=== PATIENT | male | born 1960 | race Hispanic/Latino ===

== ENCOUNTER 2020-03-25 07:46 | Emergency (ER) | payer SELFPAY ==
[2020-03-25] MEDS ORDERED: CLINDAMYCIN 600 MG/D5% WATER 50 ML IV ONE (08:28)
[2020-03-25 08:43] LABS: BASOPHILS % (AUTO) 0.4 % (0.0-5.0); EOSINOPHILS % (AUTO) 0.9 % (0.0-8.0); LYMPHOCYTES % (AUTO) 18.3 % (21.0-51.0); MEAN CORPUSCULAR HEMOGLOBIN 31.1 pg (27.0-33.0); MEAN CORPUSCULAR HGB CONC 35.5 g/dL (32.0-36.0); MEAN CORPUSCULAR VOLUME 87.6 fL (79-99); MONOCYTES % (AUTO) 7.2 % (3.0-13.0); NEUTROPHILS % (AUTO) 72.9 % (40.0-77.0); PLATELET COUNT (AUTO) 307 K/uL (130-400); RED BLOOD CELL COUNT(AUTO) 4.34 MIL/uL (4.50-6.20); RED CELL DISTRIBUTION WIDTH 11.8 % (11.0-15.5); WHITE BLOOD COUNT (AUTO) 11.7 K/uL (4.8-10.8)
[2020-03-25 09:13] LABS: CREATININE 0.9 mg/dL (0.5-1.5); POTASSIUM 3.4 mmol/L (3.5-5.1)
[2020-03-25 09:18] LABS: ALBUMIN 3.2 g/dL (3.5-5.0); BILIRUBIN,TOTAL 0.7 mg/dL (0.2-1.0); TOTAL PROTEIN, SERUM 7.8 g/dL (6.0-8.3)
== END 2020-03-25 12:46 | disposition home or self-care (01) ==
LOC: EDH 07:46
DX: S61.451A Open bite of right hand, initial encounter (principal); S81.851A Open bite, right lower leg, initial encounter; S91.331A Puncture wound without foreign body, right foot, initial encounter; S61.431A Puncture wound without foreign body of right hand, initial encounter; L03.031 Cellulitis of right toe; E11.9 Type 2 diabetes mellitus without complications; Z88.6 Allergy status to analgesic agent; Z88.1 Allergy status to other antibiotic agents; W54.0XXA Bitten by dog, initial encounter; Y93.89 Activity, other specified; Y92.098 Other place in other non-institutional residence as the place of occurrence of the external cause; Y99.8 Other external cause status
CPT/HCPCS: 36415; 73130; 73630; 80053; 83605; 84145; 85025; 87040; 96365; 96366; 99285; J3490

== ENCOUNTER 2020-05-07 11:31 | Inpatient (IN) | payer SELFPAY ==
[~2020-05-07] VITALS: Ht 177.8 cm; Wt 78.9 kg
[2020-05-07] MEDS ORDERED: CLINDAMYCIN 600 MG/D5% WATER 50 ML IV ONE (12:34)
[2020-05-07 12:41] LABS: BASOPHILS % (AUTO) 0.4 % (0.0-5.0); EOSINOPHILS % (AUTO) 2.1 % (0.0-8.0); HEMATOCRIT 38.5 % (42-54); LYMPHOCYTES % (AUTO) 31.9 % (21.0-51.0); MEAN CORPUSCULAR HEMOGLOBIN 31.1 pg (27.0-33.0); MEAN CORPUSCULAR HGB CONC 35.3 g/dL (32.0-36.0); MEAN CORPUSCULAR VOLUME 87.9 fL (79-99); MONOCYTES % (AUTO) 6.9 % (3.0-13.0); NEUTROPHILS % (AUTO) 58.3 % (40.0-77.0); PLATELET COUNT (AUTO) 293 K/uL (130-400); RED BLOOD CELL COUNT(AUTO) 4.38 MIL/uL (4.50-6.20); RED CELL DISTRIBUTION WIDTH 12.5 % (11.0-15.5); WHITE BLOOD COUNT (AUTO) 6.7 K/uL (4.8-10.8)
[2020-05-07 13:29] LABS: CREATININE 0.9 mg/dL (0.5-1.5); POTASSIUM 3.8 mmol/L (3.5-5.1)
[2020-05-07 13:36] LABS: ALBUMIN 3.3 g/dL (3.5-5.0); BILIRUBIN,TOTAL 0.4 mg/dL (0.2-1.0); TOTAL PROTEIN, SERUM 7.1 g/dL (6.0-8.3)
[2020-05-07] MEDS ORDERED: MORPHINE SULFATE 4 MG/1ML SYG IV PRN (16:30)
[2020-05-07] MEDS ORDERED: ACETAMINOPHEN-CODEINE 300/30MG TAB PO PRN (16:30)
[2020-05-07] MEDS ORDERED: ONDANSETRON HCL 4 MG/2 ML VIAL IV PRN (16:30)
[2020-05-07] MEDS ORDERED: ACETAMINOPHEN 325 MG TAB PO PRN ×2 (16:30)
[2020-05-07] MEDS: DOXYCYCLINE 100MG+NS 250ML 250 ML IV SCH (16:30)
[2020-05-07] MEDS ORDERED: MORPHINE SULFATE 2 MG/ML 1ML SYG IV PRN (16:30)
[2020-05-07 19:37] VITALS: BP 168/87
[2020-05-07] MEDS: SODIUM CHLORIDE 0.9% 1000ML 1,000 ML IV SCH (20:41)
[2020-05-07] MEDS: FAMOTIDINE/PF 20 MG/2 ML VIAL IV SCH (20:41)
[2020-05-07] MEDS: DOXYCYCLINE HYCLATE 100 MG TABLET PO SCH (20:45)
[2020-05-07 21:41] LABS: HEMOGLOBIN A1C 7.9 % (4.0-6.0)
[2020-05-08] VITALS (7 sets, daily range): BP systolic 132–155; BP diastolic 61–89
[2020-05-08] MEDS: SODIUM CHLORIDE 0.9% 1000ML 1,000 ML IV SCH ×3 (02:59→21:02)
[2020-05-08] MEDS: DOXYCYCLINE 100MG+NS 250ML 250 ML IV SCH ×2 (02:59→08:25)
[2020-05-08] MEDS ORDERED: HYDRALAZINE HCL 20 MG/ML VIAL IV PRN (08:15)
--- NOTE | 2020-05-08 08:28 | NUR ---
i spoke to dr albert and informed of consult and fact that pt is npo for him; he stated he was not going to do anything today for pt and ok to feed and that pt did not need an ortho consult for the non displaced toe fx; i also informed winch truck operator AJ from hospitalist group of dr albert statement and he said ok to d/c consult and feed pt.
[2020-05-08] MEDS: CLINDAMYCIN 600 MG/D5% WATER 50 ML IV SCH ×3 (10:36→21:00)
[2020-05-08] MEDS: DOXYCYCLINE HYCLATE 100 MG TABLET PO SCH ×2 (10:37→21:09)
[2020-05-08] MEDS: FAMOTIDINE/PF 20 MG/2 ML VIAL IV SCH ×2 (10:37→21:00)
[2020-05-08] MEDS: ENOXAPARIN SODIUM 30 MG/0.3 ML SQ SCH (10:37)
[2020-05-08] MEDS: INSULIN HUMULIN R 100 UNIT/ML 3ML SQ SCH ×3 (11:30→21:08)
--- NOTE | 2020-05-08 13:02 | NUR ---
dr mason podiatry here to see patient; when he was examining right foot 2nd toe he squezzed the toe a bit and some serous drainage came out; i got a swab and a culture sample was collected; dr mason then dressed foot in 4x4 gauze with kerlix wrap and instructed to change dressing wet to dry 2x a day; he stated pt could have osteomylitis in the foot and may need to have the toe amputated later down the line but to try antibiotics at this time and monitor. i have ordered gram stain c&s and sent swab sample to lab; pt kike. proc. well.
--- NOTE | 2020-05-08 16:48 | NUR ---
cm note met with patient and states resides at home with spouse, independent with adls and ambulation. no dme. no services. dc plan [place] back [place]. no dc needs. community rx and clinic assist programs provided. Addendum: 05/08/20 at 1652 by DAE GONZALEZ CM Amended: Links added.
--- NOTE | 2020-05-08 21:27 | NUR ---
NOTE PATIENT'S DRESSNG ON RIGHT FOOT BECAME UNDONE. OBTAINED NEW SUPPLIES TO REDRESS FOOT. MINIMAL DRAINAGE NOTED ON OLD GAUZE. REDNESS ON RING TOE. AFTER CLEANING WITH STERILE NS, WRAPPED TO IN NS MOISTENED GAUZE. COVERED WITH MAGNOLIA 4X4 AND WRAPPED FOOT WITH KERLIX GAUZE. SECURED WITH PAPER TAPE. PATIENT TOLERATED WITH NO DISCOMFORT.
[2020-05-09] MEDS: DOXYCYCLINE 100MG+NS 250ML 250 ML IV SCH (02:16)
[2020-05-09] MEDS: CLINDAMYCIN 600 MG/D5% WATER 50 ML IV SCH ×2 (02:16→09:47)
[2020-05-09 04:00] VITALS: BP 133/76
[2020-05-09 04:32] LABS: BASOPHILS % (AUTO) 0.6 % (0.0-5.0); HEMATOCRIT 36.8 % (42-54); LYMPHOCYTES % (AUTO) 30.6 % (21.0-51.0); MEAN CORPUSCULAR HEMOGLOBIN 30.5 pg (27.0-33.0); MEAN CORPUSCULAR HGB CONC 34.5 g/dL (32.0-36.0); MEAN CORPUSCULAR VOLUME 88.2 fL (79-99); MONOCYTES % (AUTO) 7.1 % (3.0-13.0); NEUTROPHILS % (AUTO) 59.4 % (40.0-77.0); PLATELET COUNT (AUTO) 262 K/uL (130-400); RED BLOOD CELL COUNT(AUTO) 4.17 MIL/uL (4.50-6.20); RED CELL DISTRIBUTION WIDTH 12.7 % (11.0-15.5); WHITE BLOOD COUNT (AUTO) 7.9 K/uL (4.8-10.8)
[2020-05-09 04:43] LABS: CREATININE 0.8 mg/dL (0.5-1.5); POTASSIUM 3.7 mmol/L (3.5-5.1)
[2020-05-09] MEDS: INSULIN HUMULIN R 100 UNIT/ML 3ML SQ SCH ×4 (06:38→21:00)
[2020-05-09 08:18] VITALS: BP 145/78
[2020-05-09] MEDS ORDERED: GADODIAMIDE 10 MMOL/20 ML VIAL IV ONE (09:16)
[2020-05-09] MEDS: DOXYCYCLINE HYCLATE 100 MG TABLET PO SCH (09:42)
[2020-05-09] MEDS: ENOXAPARIN SODIUM 30 MG/0.3 ML SQ SCH (09:42)
[2020-05-09] MEDS: FAMOTIDINE/PF 20 MG/2 ML VIAL IV SCH ×2 (09:42→21:10)
[2020-05-09] MEDS: SODIUM CHLORIDE 0.9% 1000ML 1,000 ML IV SCH ×3 (09:48→21:11)
[2020-05-09 11:27] VITALS: BP 147/77
[2020-05-09] MEDS ORDERED: VANCOMYCIN PROTOCOL PER PHARMACY IV SCH (11:45)
[2020-05-09] MEDS: DIPH,PERTUSS(ACELL),TET VAC/PF 0.5 ML VIAL IM SCH (11:45)
[2020-05-09] MEDS ORDERED: VANCOMYCIN 1.5 GM in SODIUM CHLORIDE 0.9% 250 ML IV SCH (12:15)
[2020-05-09 16:25] VITALS: BP 154/74
--- NOTE | 2020-05-09 16:38 | NUR ---
RD NOTIFICATION Pt admitted with possible osteomyelitis, as per EMR. PMH of DM. Pt tolerating 75gm CCD with no report of GI distress. PO intake at 100%. Reported insignificant weight loss. BMI WNL. RD to follow up with Nutrition education Recommend to continue current diet order. RD to continue to monitor. Please notify as additional nutrition concerns arise. Thank you.
--- NOTE | 2020-05-09 19:32 | NUR ---
NOTE SPOKE TO DR MORALEZ ABOUT PATIENT CHANGING HIS MIND ABOUT TREATMENT FOR OSTEOMYELITIS RIGHT SECOND TOE. NOW HE IS REQUESTING TO HAVE TOE AMPUTATED. HE SAID HE DID NOT WANT TO LOOSE HIS KIDNEYS TO SIX WEEKS OF ANTIBIOTICS. ORDERS RECEIVED FOR SURGERY TOMORROW. DR MORALEZ HAD INITIALLY APPROACHED HIM WITH RECOMMENDATION FOR AMPUTATION BUT HE INQUIRED ABOUT TRYING TO SAVE HIS TOE BUT HAD A CHANGE OF OPINION.
[2020-05-09 20:00] VITALS: BP 133/75
[2020-05-09] MEDS: VANCOMYCIN 1GM+NS 250ML 250 ML IV SCH (21:10)
[2020-05-09 23:36] VITALS: BP 150/80
[2020-05-10] VITALS (24 sets, daily range): BP systolic 32–159; BP diastolic 44–75
[2020-05-10 05:20] LABS: BASOPHILS % (AUTO) 0.4 % (0.0-5.0); EOSINOPHILS % (AUTO) 3.1 % (0.0-8.0); LYMPHOCYTES % (AUTO) 29.1 % (21.0-51.0); MEAN CORPUSCULAR HEMOGLOBIN 30.7 pg (27.0-33.0); MEAN CORPUSCULAR HGB CONC 34.7 g/dL (32.0-36.0); MEAN CORPUSCULAR VOLUME 88.4 fL (79-99); MONOCYTES % (AUTO) 7.1 % (3.0-13.0); PLATELET COUNT (AUTO) 277 K/uL (130-400); RED CELL DISTRIBUTION WIDTH 12.8 % (11.0-15.5)
[2020-05-10 05:41] LABS: CREATININE 0.9 mg/dL (0.5-1.5); POTASSIUM 3.9 mmol/L (3.5-5.1)
[2020-05-10] MEDS: INSULIN HUMULIN R 100 UNIT/ML 3ML SQ SCH ×4 (06:32→21:00)
[2020-05-10] MEDS: ENOXAPARIN SODIUM 30 MG/0.3 ML SQ SCH (07:56)
[2020-05-10] MEDS: VANCOMYCIN 1GM+NS 250ML 250 ML IV SCH ×2 (08:09→21:35)
[2020-05-10] MEDS: FAMOTIDINE/PF 20 MG/2 ML VIAL IV SCH ×2 (08:09→21:35)
[2020-05-10] MEDS: DIPH,PERTUSS(ACELL),TET VAC/PF 0.5 ML VIAL IM SCH (11:45)
[2020-05-10] MEDS ORDERED: DEXAMETHASONE SOD PHOSPHATE 10MG/ML 1ML VIAL ONE (12:28)
[2020-05-10] MEDS ORDERED: FENTANYL CITRATE PF 50 MCG/1 ML 2ML VIAL ONE (12:28)
[2020-05-10] MEDS ORDERED: PROPOFOL 10 MG/ML 20ML VIAL IV ONE (12:28)
[2020-05-10] MEDS ORDERED: MIDAZOLAM HCL 1 MG/ML 2ML VIAL ONE (12:28)
[2020-05-10] MEDS ORDERED: LIDOCAINE PF 2% 5ML ABBOJECT ONE (12:28)
[2020-05-10] MEDS ORDERED: ONDANSETRON HCL 4 MG/2 ML VIAL ONE (12:28)
[2020-05-10] MEDS ORDERED: MORPHINE SULFATE 2 MG/ML 1ML SYG IV PRN (12:30)
[2020-05-10] MEDS ORDERED: HYDROCODONE/ACETAMINOPHEN 5/325 MG TAB PO PRN (12:30)
[2020-05-10] MEDS ORDERED: ROCURONIUM 10MG/1ML SYR 10 MG/ML ML ONE (12:31)
[2020-05-10] MEDS ORDERED: BUPIVACAINE/PF 0.5% 30ML VIAL ONE (12:39)
[2020-05-10] MEDS ORDERED: LIDOCAINE HCL 1% 20 ML VIAL ONE (12:39)
[2020-05-10] MEDS ORDERED: AMLODIPINE BESYLATE 5 MG TAB PO SCH (14:15)
--- NOTE | 2020-05-10 16:09 | NUR ---
NUTRITION EDUCATION Pt NPO at time of screen. Nutrition recommendations and education handouts placed in Pt chart. Pt with previous good appetite. RD to follow up.
--- NOTE | 2020-05-10 21:35 | NUR ---
MEDS SHIFT ASSESSMENT DONE, PLEASE REFER TO CHART. PT CLAIMS OF POST OP PAINS. DUE MEDS ADMINISTERED, TYLENOL #3 1 TAB GIVEN FOR PAINS. KEPT COMFORTABLE IN BED. CALL LIGHT WITHIN REACH. WILL MONITOR PT. Addendum: 05/11/20 at 0312 by DHAVAL AVENDAÑO RN RN Amended: Links added.
[2020-05-11] VITALS: BP 138/73
--- NOTE | 2020-05-11 00:11 | NUR ---
PAIN PT CLAIMS OF POST OP PAINS ON THE RIGHT FOOT. PCP IN AND CHECKED V/S, STABLE. MEDICATED WITH MORPHINE IV. KEPT COMFORTABLE IN BED. CALL LIGHT WITHIN REACH. WILL RE-ASSESS PT. Addendum: 05/11/20 at 0246 by DHAVAL AVENDAÑO RN RN Amended: Links added.
--- NOTE | 2020-05-11 02:00 | NUR ---
ROUNDS PT RESTING WELL, FAIRLY ASLEEP. NO DISTRESS NOTED. KEPT RESTED AND COMFORTABLE. CALL LIGHT WITHIN REACH. WILL MONITOR PT. CALL LIGHT WITHIN REACH.
[2020-05-11 03:44] LABS: BASOPHILS % (AUTO) 0.4 % (0.0-5.0); EOSINOPHILS % (AUTO) 2.7 % (0.0-8.0); LYMPHOCYTES % (AUTO) 34.4 % (21.0-51.0); MEAN CORPUSCULAR HEMOGLOBIN 30.4 pg (27.0-33.0); MEAN CORPUSCULAR HGB CONC 34.2 g/dL (32.0-36.0); MEAN CORPUSCULAR VOLUME 88.9 fL (79-99); MONOCYTES % (AUTO) 7.6 % (3.0-13.0); NEUTROPHILS % (AUTO) 54.6 % (40.0-77.0); PLATELET COUNT (AUTO) 250 K/uL (130-400); RED BLOOD CELL COUNT(AUTO) 4.05 MIL/uL (4.50-6.20); RED CELL DISTRIBUTION WIDTH 12.7 % (11.0-15.5); WHITE BLOOD COUNT (AUTO) 7.4 K/uL (4.8-10.8)
[2020-05-11 03:55] VITALS: BP 121/84
[2020-05-11 03:57] LABS: ALBUMIN 2.9 g/dL (3.5-5.0); BILIRUBIN,TOTAL 0.4 mg/dL (0.2-1.0); CREATININE 0.9 mg/dL (0.5-1.5); POTASSIUM 3.9 mmol/L (3.5-5.1); TOTAL PROTEIN, SERUM 6.2 g/dL (6.0-8.3)
[2020-05-11] MEDS: INSULIN HUMULIN R 100 UNIT/ML 3ML SQ SCH ×2 (05:57→11:30)
--- NOTE | 2020-05-11 06:00 | NUR ---
ROUNDS PT RESTING WELL. NO DISTRESS NOTED. NO CONCERNS VERBALIZED. FOR MORE CARE.
[2020-05-11 07:30] VITALS: BP 135/74
[2020-05-11] MEDS ORDERED: AMLODIPINE BESYLATE 5 MG TAB PO SCH (09:00)
[2020-05-11] MEDS: FAMOTIDINE/PF 20 MG/2 ML VIAL IV SCH (09:37)
[2020-05-11] MEDS: ENOXAPARIN SODIUM 30 MG/0.3 ML SQ SCH (09:38)
[2020-05-11] MEDS ORDERED: VANCOMYCIN 1.25 GM in SODIUM CHLORIDE 0.9% 250 ML IV SCH (09:45)
[2020-05-11] MEDS ORDERED: COMPOUND IV REFRIGERATED 1 EACH IVSOLN MISC PRN (09:45)
--- NOTE | 2020-05-11 10:01 | NUR ---
per NNEKA Torres she received a call from [facility] to instruct patient how to utilize bilateral crutches safely.Went to see patient and provided bilateral crutches and was able to ambulate safely [facility] to [facility].Notified NNEKA Torres that patient did well without any LOB. Addendum: 05/11/20 at 1004 by MESSI MOSCOSO, PT PT Amended: Links added.
[2020-05-11 11:00] VITALS: BP 136/70
[2020-05-11] MEDS: DIPH,PERTUSS(ACELL),TET VAC/PF 0.5 ML VIAL IM SCH (11:45)
[2020-05-11 16:00] VITALS: BP 139/73
--- NOTE | 2020-05-11 18:00 | NUR ---
DISCHARGE HOME. . REVIEW. AND DRSG CHANGES TO HIS RT FOOT . . OF DR. MORALEZ ORDERS TO FOLLOW WITH WOUND CARE, AND TO KEEP DRSG DRY AND INTACT. PT .WANTED RT FOOT DRSG DEMONTATION . PRIOR . TO GO HOME DRSG REMOVE. RT FOOT 2ND TOE STAPLE TO AMPUATIOON SITE. DRY AND CLEAN NOTED NO DRAINAGE. A SM PIECE OF VASOLINE GAUZE DONE . APPLY AND STERILE GAUZE PLACED AND SECURE WITH KERLIX AND WRAP WITH GABRIEL WRAP. TOLERATE WELL .STATED THAT HE DID HIS AMPUATION CARE AT HOME, AND IS ABLE TO DO IT AT HOME, UNDERSTAND EDUCATION OF WOUND CARE DRSG AND FOLLOWUP TO WOUND CENTER . . SL TO HIS [facility] ,[place] WITH NO HEMATOMA NOTED. SUPPLIES GIVEN FOR WOUND CARE DRSG AT HOME, AND TO CALL DR MORALEZ FOR ANY CONCERNS. DISCHARGE HOME, WITH FAMILY ..
== END 2020-05-11 18:00 | disposition home or self-care (01) | DRG 617 ==
LOC: EDH 11:31 → EDHIP 11:32 → 3DH 18:14
PROVIDERS: ADMIT Hospitalist; ATTEND Hospitalist
PROC: 3E0234Z Introduction of Serum, Toxoid and Vaccine into Muscle, Percutaneous Approach (ICD-10-PCS; 2020-05-09)
PROC: 0Y6R0Z0 Detachment at Right 2nd Toe, Complete, Open Approach (ICD-10-PCS; principal; 2020-05-10 12:33)
DX: E11.69 Type 2 diabetes mellitus with other specified complication (principal); L02.611 Cutaneous abscess of right foot; M86.8X7 Other osteomyelitis, ankle and foot; L03.031 Cellulitis of right toe; E11.621 Type 2 diabetes mellitus with foot ulcer; E66.9 Obesity, unspecified; Z53.20 Procedure and treatment not carried out because of patient's decision for unspecified reasons; E11.65 Type 2 diabetes mellitus with hyperglycemia; B95.61 Methicillin susceptible Staphylococcus aureus infection as the cause of diseases classified elsewhere; Z68.25 Body mass index [BMI] 25.0-25.9, adult; L97.519 Non-pressure chronic ulcer of other part of right foot with unspecified severity; W54.0XXA Bitten by dog, initial encounter; Y93.89 Activity, other specified; Y92.89 Other specified places as the place of occurrence of the external cause; Y99.8 Other external cause status; Z23 Encounter for immunization; Z88.6 Allergy status to analgesic agent
CPT/HCPCS: 36415; 73660; 73720; 80048; 80053; 80202; 82948; 83036; 85025; 87070; 87077; 87186; 88305; 88311; 90715; 93925; A9579; G0378; J1100; J1650; J1815; J2001; J2250; J2270; J2405; J2704; J3010; J3370; J3490; J7030; J7050

== ENCOUNTER → 2020-05-18 | Outpatient (CLI) | payer SELFPAY | END | disposition home or self-care (01) | LOC: WHH 08:42 | PROVIDERS: ATTEND Podiatrist Foot & Ankle Surgery | DX: T87.89 Other complications of amputation stump (principal); E11.51 Type 2 diabetes mellitus with diabetic peripheral angiopathy without gangrene; E11.69 Type 2 diabetes mellitus with other specified complication; M86.18 Other acute osteomyelitis, other site; M86.8X7 Other osteomyelitis, ankle and foot; E78.5 Hyperlipidemia, unspecified; E66.9 Obesity, unspecified; Z98.49 Cataract extraction status, unspecified eye; Z87.891 Personal history of nicotine dependence; Z68.24 Body mass index [BMI] 24.0-24.9, adult; Y83.5 Amputation of limb(s) as the cause of abnormal reaction of the patient, or of later complication, without mention of misadventure at the time of the procedure | CPT/HCPCS: 82948; 99215; A4450 ==

== ENCOUNTER 2020-06-01 09:00 | Outpatient (CLI) | payer SELFPAY | END 2020-06-01 11:51 | disposition home or self-care (01) | LOC: WHH 09:00 | PROVIDERS: ATTEND Podiatrist Foot & Ankle Surgery | DX: T87.89 Other complications of amputation stump (principal); E11.51 Type 2 diabetes mellitus with diabetic peripheral angiopathy without gangrene; E11.69 Type 2 diabetes mellitus with other specified complication; M86.18 Other acute osteomyelitis, other site; M86.8X7 Other osteomyelitis, ankle and foot; E78.5 Hyperlipidemia, unspecified; E66.9 Obesity, unspecified; Z98.49 Cataract extraction status, unspecified eye; Z87.891 Personal history of nicotine dependence; Z68.24 Body mass index [BMI] 24.0-24.9, adult; Y83.5 Amputation of limb(s) as the cause of abnormal reaction of the patient, or of later complication, without mention of misadventure at the time of the procedure | CPT/HCPCS: 99213 ==

== ENCOUNTER 2021-08-17 09:50 | Emergency (ER) | payer SELFPAY ==
[~2021-08-17] VITALS: Ht 177.8 cm; Wt 81.6 kg
[2021-08-17] MEDS ORDERED: LEVOFLOXACIN 500 MG/D5W 100 ML 100 ML IV SCH (10:42)
[2021-08-17] MEDS ORDERED: LIDOCAINE HCL 400MG/20ML VIAL ONE (12:25)
[2021-08-17] MEDS ORDERED: CIPR-278 PO (13:32)
[2021-08-17 13:44] VITALS: BP 125/85
== END 2021-08-17 13:46 | disposition home or self-care (01) ==
LOC: EDH 09:50
DX: S60.453A Superficial foreign body of left middle finger, initial encounter (principal); Z88.0 Allergy status to penicillin; Z88.5 Allergy status to narcotic agent; Z88.6 Allergy status to analgesic agent; W45.8XXA Other foreign body or object entering through skin, initial encounter; Y93.89 Activity, other specified; Y92.89 Other specified places as the place of occurrence of the external cause; Y99.8 Other external cause status
CPT/HCPCS: 64450; 73140; 96365; 99284; J1956; J3490

== ENCOUNTER → 2023-07-01 | Outpatient (CLI) | payer MEDICARE ==
[~2023-07-01] MED LIST: CIPR-278 PO; REGADENOSON 0.4 MG/5 ML PF SYG IVP ONE
== END | disposition home or self-care (01) ==
LOC: SHCH 08:21
PROVIDERS: ATTEND Internal Medicine
DX: R07.9 Chest pain, unspecified (principal); R94.31 Abnormal electrocardiogram [ECG] [EKG]; R06.09 Other forms of dyspnea
CPT/HCPCS: 78452; 96374; 93017; J2785; A9500 ×2

== ENCOUNTER 2023-07-22 10:33 | Emergency (ER) | payer MEDICARE ==
[~2023-07-22] VITALS: Ht 177.8 cm; Wt 81.6 kg
[~2023-07-22 10:33] MED LIST changes: -REGADENOSON 0.4 MG/5 ML PF SYG IVP ONE
[2023-07-22] MEDS ORDERED: IBUP-2070 PO (12:12)
[2023-07-22] MEDS ORDERED: CLIN-141 PO (12:12)
[2023-07-22] MEDS ORDERED: ACETAMINOPHEN 500 MG TABLET PO ONE (12:30)
[2023-07-22] MEDS ORDERED: KETOROLAC 60 MG VIAL (30MG/ML) IM ONE (12:30)
[2023-07-22 12:33] VITALS: BP 138/88; PULSE 74; RESP 16; O2SAT 98
== END 2023-07-22 12:37 | disposition home or self-care (01) ==
LOC: EDH 10:33
DX: K02.9 Dental caries, unspecified (principal); K05.10 Chronic gingivitis, plaque induced; I10 Essential (primary) hypertension; E11.9 Type 2 diabetes mellitus without complications; Z79.899 Other long term (current) drug therapy; Z98.890 Other specified postprocedural states; Z88.0 Allergy status to penicillin; Z88.5 Allergy status to narcotic agent; Z88.6 Allergy status to analgesic agent

== ENCOUNTER 2023-09-11 05:50 | Day surgery (SDC) | payer MEDICARE ==
[2023-09-09 11:12] LABS: BASOPHILS # (AUTO) 0.04 K/uL (0.00-0.20); BASOPHILS % (AUTO) 0.6 % (0.0-5.0); EOSINOPHILS # (AUTO) 0.17 K/uL (0.00-0.70); EOSINOPHILS % (AUTO) 2.6 % (0.0-8.0); HEMATOCRIT 41.9 % (42-54); IMMATURE GRANULOCYTE ABSOLUTE 0.03 K/uL (0-1); LYMPHOCYTES # (AUTO) 2.3 K/uL (1.0-4.8); LYMPHOCYTES % (AUTO) 34.5 % (21.0-51.0); MEAN CORPUSCULAR HEMOGLOBIN 32.3 pg (27.0-33.0); MEAN CORPUSCULAR HGB CONC 34.4 g/dL (32.0-36.0); MEAN CORPUSCULAR VOLUME 93.9 fL (79-99); MONOCYTES # (AUTO) 0.5 K/uL (0.1-1.0); MONOCYTES % (AUTO) 7.2 % (3.0-13.0); NEUTROPHILS # (AUTO) 3.6 K/uL (1.8-7.7); NEUTROPHILS % (AUTO) 54.6 % (40.0-77.0); PLATELET COUNT (AUTO) 249 K/uL (130-400); RED BLOOD CELL COUNT(AUTO) 4.46 MIL/uL (4.50-6.20); RED CELL DISTRIBUTION WIDTH 12.1 % (11.0-15.5); WHITE BLOOD COUNT (AUTO) 6.6 K/uL (4.8-10.8)
[2023-09-09 11:14] LABS: POTASSIUM 4.1 mmol/L (3.5-5.1)
[2023-09-09 11:43] VITALS: BP 140/67; PULSE 64; RESP 17
[2023-09-09 11:47] LABS: B-TYPE NATRIURETIC PEPTIDE 120 pg/mL (0-100)
[2023-09-09 11:53] LABS: INR 0.96 (0.85-1.15); PROTHROMBIN TIME 11.2 SEC (9.6-11.6)
[~2023-09-11] VITALS: Ht 180.3 cm; Wt 80.6 kg
[2023-09-11] VITALS (9 sets, daily range): BP systolic 134–158; BP diastolic 51–75; PULSE 56–68; RESP 11–18
[~2023-09-11 05:50] MED LIST changes: +ATOR40TA71 PO; -CIPR-278 PO; +NITR0.4T50 SL
[2023-09-11] MEDS ORDERED: 0.9%NACL 1000ML 1,000 ML IV ONE (06:34)
[2023-09-11] MEDS ORDERED: VERAPAMIL HCL 2.5 MG/ML VIAL ONE (07:12)
[2023-09-11] MEDS ORDERED: IOHEXOL 350 MG/ML 100ML INFUS..BTL IV ONE (07:12)
[2023-09-11] MEDS ORDERED: HEPARIN 10,000 UNIT/10ML (1,000 UNIT/ML) VIAL ONE (07:12)
[2023-09-11] MEDS ORDERED: MIDAZOLAM HCL 1 MG/ML 2ML VIAL ONE (07:12)
[2023-09-11] MEDS ORDERED: FENTANYL CITRATE PF 50 MCG/1 ML 2ML VIAL ONE (07:12)
[2023-09-11] MEDS ORDERED: NITROGLYCERIN 50MG VIAL ONE (07:13)
[2023-09-11] MEDS ORDERED: LIDOCAINE HCL 400MG/20ML VIAL ONE (07:13)
[2023-09-11] MEDS ORDERED: 0.9%NACL 1000ML 1,000 ML IV SCH (08:30)
[2023-09-11] MEDS ORDERED: DEXTROSE 50%-WATER 50 ML DISP.SYRIN IV PRN (08:30)
[2023-09-11] MEDS ORDERED: GLUCAGON 1MG KIT 1 MG ML IM PRN (08:30)
== END 2023-09-11 12:16 | disposition home or self-care (01) ==
LOC: DAH 05:50
PROVIDERS: ATTEND Internal Medicine
DX: I25.5 Ischemic cardiomyopathy (principal); I25.118 Atherosclerotic heart disease of native coronary artery with other forms of angina pectoris; I10 Essential (primary) hypertension; E11.9 Type 2 diabetes mellitus without complications; F17.210 Nicotine dependence, cigarettes, uncomplicated; F12.90 Cannabis use, unspecified, uncomplicated; Z88.6 Allergy status to analgesic agent; Z83.3 Family history of diabetes mellitus; Z88.0 Allergy status to penicillin; Z72.89 Other problems related to lifestyle; Z79.84 Long term (current) use of oral hypoglycemic drugs; Z79.899 Other long term (current) drug therapy; Z82.49 Family history of ischemic heart disease and other diseases of the circulatory system; Z98.890 Other specified postprocedural states
CPT/HCPCS: 80048; 83880; 85025; 85610; 85730; 36415; 71045; 93005; 93458; 82948; C1769; C1894; A4649; J3010; J3490 ×3; J7030 ×2; J1644 ×2; J2250; Q9967; A4215; A4222; A4221; A4663; A4216; A4606; Q9965; A4223 ×3; 99156; 99157

== ENCOUNTER 2023-10-24 05:47 | Observation (INO) | payer MEDICARE ==
[2023-10-22 09:51] VITALS: BP 153/64; PULSE 71; RESP 20
[2023-10-22 09:51] LABS: BASOPHILS # (AUTO) 0.04 K/uL (0.00-0.20); BASOPHILS % (AUTO) 0.7 % (0.0-5.0); EOSINOPHILS # (AUTO) 0.19 K/uL (0.00-0.70); EOSINOPHILS % (AUTO) 3.1 % (0.0-8.0); HEMATOCRIT 41.6 % (42-54); IMMATURE GRANULOCYTE ABSOLUTE 0.01 K/uL (0-1); LYMPHOCYTES # (AUTO) 1.7 K/uL (1.0-4.8); LYMPHOCYTES % (AUTO) 27.2 % (21.0-51.0); MEAN CORPUSCULAR HEMOGLOBIN 32.1 pg (27.0-33.0); MEAN CORPUSCULAR HGB CONC 34.4 g/dL (32.0-36.0); MEAN CORPUSCULAR VOLUME 93.5 fL (79-99); MONOCYTES # (AUTO) 0.4 K/uL (0.1-1.0); NEUTROPHILS # (AUTO) 3.9 K/uL (1.8-7.7); NEUTROPHILS % (AUTO) 62.8 % (40.0-77.0); PLATELET COUNT (AUTO) 218 K/uL (130-400); RED BLOOD CELL COUNT(AUTO) 4.45 MIL/uL (4.50-6.20); RED CELL DISTRIBUTION WIDTH 12.3 % (11.0-15.5); WHITE BLOOD COUNT (AUTO) 6.1 K/uL (4.8-10.8)
[2023-10-22 09:58] LABS: POTASSIUM 3.6 mmol/L (3.5-5.1)
[2023-10-22 10:01] LABS: INR 0.94 (0.85-1.15); PROTHROMBIN TIME 10.9 SEC (9.6-11.6)
[2023-10-22 10:02] LABS: PARTIAL THROMBOPLASTIN TIME 25.9 SEC (26.3-35.5)
[2023-10-22 10:28] LABS: B-TYPE NATRIURETIC PEPTIDE 130 pg/mL (0-100)
[~2023-10-24] VITALS: Ht 180.3 cm; Wt 84.2 kg
[2023-10-24] VITALS (12 sets, daily range): BP systolic 122–156; BP diastolic 61–76; PULSE 60–78; RESP 14–20; O2SAT 97
[~2023-10-24 05:47] MED LIST changes: +AEC81 PO; +CARV3.12 PO; +CLOP-31 PO; +ISOS30TA92 PO; +METF-444 PO
[2023-10-24] MEDS ORDERED: 0.9%NACL 1000ML 1,000 ML IV ONE (06:14)
[2023-10-24] MEDS ORDERED: NITROGLYCERIN 50MG VIAL ONE (07:17)
[2023-10-24] MEDS ORDERED: VERAPAMIL HCL 2.5 MG/ML VIAL ONE (07:17)
[2023-10-24] MEDS ORDERED: LIDOCAINE HCL 400MG/20ML VIAL ONE (07:17)
[2023-10-24] MEDS ORDERED: FENTANYL CITRATE PF 50 MCG/1 ML 2ML VIAL ONE (07:17)
[2023-10-24] MEDS ORDERED: IOHEXOL 350 MG/ML 100ML INFUS..BTL IV ONE (07:17)
[2023-10-24] MEDS ORDERED: HEPARIN 10,000 UNIT/10ML (1,000 UNIT/ML) VIAL ONE (07:17)
[2023-10-24] MEDS ORDERED: MIDAZOLAM HCL 1 MG/ML 2ML VIAL ONE (07:17)
[2023-10-24] MEDS ORDERED: ATROPINE 1MG SYG IVP ONE (08:00)
[2023-10-24] MEDS ORDERED: ONDANSETRON 4MG INJ ONE (08:15)
[2023-10-24] MEDS ORDERED: DiphenhydrAMINE HCL 50 MG/ML VIAL ONE (08:28)
[2023-10-24] MEDS ORDERED: HYDRALAZINE 20MG/ML VIAL ONE (08:51)
[2023-10-24] MEDS ORDERED: ASPIRIN 81MG CHEW TAB ONE (08:57)
[2023-10-24] MEDS ORDERED: TICAGRELOR 90 MG TABLET ONE (08:57)
[2023-10-24] MEDS ORDERED: NITROGLYCERIN 4.1 GM SPRAY TL ONE (09:02)
[2023-10-24] MEDS ORDERED: DEXTROSE 50%-WATER 50 ML DISP.SYRIN IV PRN (09:30)
[2023-10-24] MEDS ORDERED: 0.9%NACL 1000ML 1,000 ML IV SCH (09:30)
[2023-10-24] MEDS ORDERED: GLUCAGON 1MG KIT 1 MG ML IM PRN (09:30)
[2023-10-24] MEDS: ACETAMINOPHEN WITH CODEINE 1 TAB TAB PO PRN ×2 (10:46→11:03)
[2023-10-24] MEDS ORDERED: TRAMADOL HCL 50 MG TABLET PO ONE (11:30)
[2023-10-24] MEDS ORDERED: NITROGLYCERIN 0.4 MG SL TAB SL PRN ×2 (11:30→19:00)
[2023-10-24] MEDS ORDERED: NITROGLYCERIN 0.4 MG SL TAB SL ONE (11:37)
[2023-10-24] MEDS ORDERED: ISOSORBIDE MONO 30MG SR TAB PO SCH ×2 (17:00→21:00)
[2023-10-24] MEDS ORDERED: ACETAMINOPHEN 500 MG TABLET PO PRN (17:00)
[2023-10-24] MEDS ORDERED: ONDANSETRON 4MG INJ IVP PRN (17:00)
[2023-10-24] MEDS ORDERED: HYDRALAZINE 20MG/ML VIAL IV PRN (17:00)
[2023-10-24] MEDS: METFORMIN HCL 500 MG TABLET PO SCH (20:49)
[2023-10-24] MEDS: TICAGRELOR 90 MG TABLET PO SCH (20:49)
[2023-10-24] MEDS: CARVEDILOL 3.125 MG TABLET PO SCH (20:49)
[2023-10-24] MEDS ORDERED: ATORVASTATIN 40 MG TABLET PO SCH (21:00)
[2023-10-25] VITALS: BP 126/58; PULSE 75; RESP 18
[2023-10-25 04:00] VITALS: BP 126/68; PULSE 67; RESP 18
[2023-10-25 07:45] VITALS: O2SAT 98
[2023-10-25 08:00] VITALS: BP 138/66; PULSE 66; RESP 16
[2023-10-25] MEDS ORDERED: TICA90TA PO (08:41)
[2023-10-25] MEDS ORDERED: ASPIRIN 81 MG EC TAB PO SCH (09:00)
[2023-10-25] MEDS: TICAGRELOR 90 MG TABLET PO SCH (09:44)
[2023-10-25 09:45] VITALS: BP 138/66
[2023-10-25] MEDS: METFORMIN HCL 500 MG TABLET PO SCH (09:45)
[2023-10-25] MEDS: CARVEDILOL 3.125 MG TABLET PO SCH (09:45)
== END 2023-10-25 11:05 | disposition home or self-care (01) ==
LOC: DAH 05:47 → DAHIP 05:48 → 3DH 14:35
PROVIDERS: ADMIT Internal Medicine; ATTEND Internal Medicine
DX: I25.110 Atherosclerotic heart disease of native coronary artery with unstable angina pectoris (principal); I25.5 Ischemic cardiomyopathy; I10 Essential (primary) hypertension; E11.9 Type 2 diabetes mellitus without complications; Z79.899 Other long term (current) drug therapy
CPT/HCPCS: 80048; 83880; 85025; 85610; 85730; 36415 ×2; 93005 ×3; 92978; 0715T; 93454; 85347 ×2; 82948 ×2; C1769 ×2; C1887; C1725 ×3; C1874 ×2; C1894; C1761; C1753; Q9965 ×2; G0378 ×21; J1200; J3010; J3490 ×3; J7030; J0360; J1644 ×2; J2250; J2405; Q9967; A4215; A4223 ×3; A4222; A4221; A4663; A4216; A4606; C9600; 99156; 99157; J0461

== ENCOUNTER → 2024-11-25 | Outpatient (CLI) | payer OTHER, MEDICARE ==
[~2024-11-25] MED LIST changes: -CLOP-31 PO; +TICA90TA PO
== END | disposition home or self-care (01) ==
LOC: SHCH 09:01
PROVIDERS: ATTEND Internal Medicine
DX: I25.5 Ischemic cardiomyopathy (principal)
CPT/HCPCS: 93306